=== PATIENT | female | born 1985 | race African-American/Black ===

== ENCOUNTER 2017-09-30 10:58 | Emergency (ER) | payer SELFPAY ==
[~2017-09-30] VITALS: Ht 175.3 cm; Wt 114.0 kg
[2017-09-30] MEDS ORDERED: ALBUTEROL (0.083%) 2.5MG/3ML NEB HHN STA (14:31)
[2017-09-30] MEDS ORDERED: IPRATROPIUM BROMIDE (0.02%) 0.5MG/2.5ML NEB HHN STA (14:31)
[2017-09-30] MEDS ORDERED: IBUPROFEN 600MG TABLET PO ONE (16:45)
[2017-09-30 17:20] VITALS: BP 120/70
== END 2017-09-30 17:32 | disposition home or self-care (01) ==
LOC: ER 10:58
DX: J06.9 Acute upper respiratory infection, unspecified (principal); R03.0 Elevated blood-pressure reading, without diagnosis of hypertension
CPT/HCPCS: 71045; 81025; 87070; 87430; 87804; 94640; 99284; J7611